=== PATIENT | male | born 1990 | race Caucasian/White ===

== ENCOUNTER → 2018-09-18 09:21 | Outpatient (CLI) | payer BC, SELFPAY ==
[2018-09-18 10:50] LABS: PH,Semen 8.5 (7.3-8.3); Semen Viscosity Normal (Normal); WBCs,Semen Negative
[2018-09-18 10:51] LABS: Motility Quality Rapid Progression (Mod-Rapid); Sperm Count 38 mil/mm3 (20-160); Sperm Motility 75 % (50-90)
[2018-09-18 12:30] LABS: 3Hr Motility Quality Rapid Progression (Mod-Rapid); 3Hr Sperm Motility 50 % (50-60); Sperm Morphology Normal (Normal)
== END ==
PROVIDERS: Visit Provider Obstetrics & Gynecology
DX: Z31.69 Encounter for other general counseling and advice on procreation (principal)
CPT/HCPCS: 89320

== ENCOUNTER 2020-06-25 08:57 | Emergency (ER) | payer OTHER, SELFPAY ==
[2020-06-25 09:12] VITALS: BP 134/101; PULSE 98; RESP 18; TEMP 36.8; O2SAT 99; BMI 40.4
--- NOTE | 2020-06-25 09:15 | PC.NURSE ---
Offered patient COVID test and flu test. Patient yelled at this nurse and SRNA stating that it is his right to refuse. Agreed with patient and did not perform these test. Patient also yelling that the lady out front made him mad asking him irrelevant question like where he works and they made him change his mask to this thin piece of crap .
--- NOTE | 2020-06-25 09:34 | HMH.EDUTC ---
[facility] [place] Disposition Clinical Impression: Viral syndrome Pharyngitis Qualifiers: Pharyngitis/tonsillitis etiology: unspecified etiology Qualified Code(s): J02.9 - Acute pharyngitis, unspecified Disposition: Home, Self-Care Condition on Discharge: Good Instructions: DI for Viral Syndrome, Preventing the Spread of Coronavirus Discharge Instructions Additional Instructions: Drink plenty of fluids. Take tylenol or ibuprofen for pain or fever. Take the medications as directed. Follow up with your regular doctor. GO TO THE ER FOR ANY WORSENING SYMPTOMS Prescriptions: Ondansetron [Zofran 4mg ODT] 4 mg PO Q8HP PRN #12 tab.rapdis PRN Reason: Nausea Transmission Status: Received by [id number] Azithromycin [Z-Clifton 250mg Tab*] 250 mg PO UD DOSE PK #6 tab Transmission Status: Received by [id number] Zinc Sulfate [Zinc Sulfate 220mg capsule] 1 cap PO DAILY 14 Days #14 cap Transmission Status: Received by [id number] Referrals: PCP,No [Primary Care Provider] - Forms: Work/School Release Time of Disposition: 09:36 Medical Decision Making - Medical Records Medical records reviewed: No: I reviewed the patient's medical records. - Thierry Inquiry Pt receiving controlled substance: No Vital Signs: 06/25/20 09:12 06/25/20 09:59 Temperature 98.3 F 98.3 F Temperature Source Oral Oral Pulse Rate 98 H Pulse Rate [Radial] 98 H Respiratory Rate 18 18 Blood Pressure 134/101 H Blood Pressure [Right Arm] 134/101 H Blood Pressure Mean [Right Arm] 112 Blood Pressure Source Automatic Cuff Blood Pressure Source [Right Arm] Automatic Cuff Blood Pressure Position Sitting Blood Pressure Position [Right Arm] Sitting 02 Sat by Pulse Oximetry 99 Oxygen Delivery Method Room Air Room Air Orders (Tests/Meds): ORDERS Category Date Time Status Covid-19 Nasal PCR Sendout [facility] 06/25/20 09:[address] [facility] [place] HPI - General Stated complaint: headache,body aches Time Seen by Provider: 06/25/20 09:34 Mode of Arrival: Ambulatory Source of Information: Patient Limitations: No Limitations Description of Symptoms (Recalled from Triage Doc. by RN): body aches, headache, fever since yesterday HEENT Symptoms (Recalled from RN notes): Yes Resp Symptoms (Recalled from RN notes): No Skin Symptoms (Recalled from RN notes): No MS Symptoms (Recalled from RN notes): No Functional Status (Recalled from RN notes): wnl - History of Present Illness Provider Complaint: He c/o 2 days of low grade fever, chills, body aches, head aches. - Related Data Home Medications Medication Instructions Recorded Confirmed ARIPiprazole [Aripiprazole 10mg 10 mg PO DAILY 06/06/19 06/06/19 Tablet] Previous Rx's Medication Instructions Recorded Azithromycin [Z-Clifton 250mg Tab*] 250 mg PO UD DOSE PK #6 tab 07/25/19 Brompheniramine/Pseudoephed/Dm 5 ml PO Q6HP PRN #240 syrup 07/25/19 [Bromfed Dm Cough Syrup] Ibuprofen [Ibuprofen 600mg 600 mg PO Q6HP PRN #30 tab 07/25/19 Tablet] Oseltamivir Phosphate [Tamiflu 75 mg PO BID #10 cap 07/25/19 75mg Capsule] Azithromycin [Z-Clifton 250mg Tab*] 250 mg PO UD DOSE PK #6 tab 06/25/20 Ondansetron [Zofran 4mg ODT] 4 mg PO Q8HP PRN #12 tab.rapdis 06/25/20 Zinc Sulfate [Zinc Sulfate 220mg 1 cap PO DAILY 14 Days #14 cap 06/25/20 capsule] Allergies Allergy/AdvReac Type Severity Reaction Status Date / Time No Known Allergies Allergy Verified 01/22/19 01:16 - Worker's Comp Is this a Worker's Comp case?: No [facility] History - Hepatitis A Screen Drug use history?: No High risk sexual behaviors?: No History of sexually transmitted infection?: No Currently employed?: No Childcare worker?: No Do you have indoor plumbing?: Yes Do you have electricity?: Yes Attestation statement:: This patient has been screened for Hepatitis A risk factors. I have reviewed the patient's past medical history: Yes Medical History: Denies:: C
[2020-06-25 09:59] VITALS: BP 134/101; PULSE 98; RESP 18; TEMP 36.8; O2SAT 99
[2020-06-26 12:30] LABS: Covid-19 Nasal PCR Sendout Lex Not Detected
== END 2020-06-25 10:00 | disposition home or self-care (01) ==
PROVIDERS: Emergency Provider Nurse Practitioner Family
DX: Z20.828 Contact with and (suspected) exposure to other viral communicable diseases (principal); B34.9 Viral infection, unspecified; F17.210 Nicotine dependence, cigarettes, uncomplicated
CPT/HCPCS: 99201; U0004

== ENCOUNTER 2022-07-23 08:18 | Emergency (ER) | payer OTHER, SELFPAY ==
[2022-07-23 08:25] VITALS: BP 163/88; PULSE 109; RESP 20; TEMP 36.7; O2SAT 97; BMI 42.7
--- NOTE | 2022-07-23 08:38 | EXP.UTC ---
Discharge Plan Disposition Patient Disposition: Home, Self-Care Condition: Good Referrals Follow up/Referrals: Provider,Referral, [Primary Care Provider] - See instructions Activity Restrictions/Add. Instructions Additional Instructions/Restrictions: *Monitor Temp, Over the counter Motrin or Tylenol as directed/as needed Tylenol every 4 hours and Motrin every 6 hours (as long as your family doctor has told you that you can take it) for fever or pain. and straight to ER if unable to lower temp less than 101.0 after medication given *Warm salt water gargles may help to soothe the throat *Throat Lozenges? *Warm fluids like tea with honey may help to soothe the throat? *Sleep elevated *Humidifier/Vaporizer Your throat swab was sent for culture. Those results are typically sent to your primary care. Be sure to follow up in 2-3 days with your family doctor/primary care physician if no improvement so they can review those result and treat if necessary. If you don?t have a primary care doctor, I recommend you get one but in the mean time, you will have to return to a walk in clinic Follow up IMMEDIATELY for new or worsening symptoms or no Noticeable improvement over the next 48-72 hours. 911 for difficulty breathing or swallowing Clinical Impressions Clinical Impression: Viral upper respiratory infection Stand Alone Forms Stand Alone Forms: Work/School Release Instructions Patient Instructions: Sore Throat, DI for Fever (Symptom) -- Adult Discharge ED Provider: Evon Guerra [facility] [place] General Stated complaint: headache,sore throat,body aches Mode of Arrival: Ambulatory Source of Information: Patient Limitations: No Limitations Time Seen by Provider: 07/23/22 08:38 Description of Symptoms (Recalled from Triage Doc. by RN): PATIENT C/O HEADACHE, SORE THROAT, LOW-GRADE FEVER, BODY ACHES, AND COUGH THAT STARTED LAST NIGHT HEENT Symptoms (Recalled from RN notes): Yes Resp Symptoms (Recalled from RN notes): Yes Skin Symptoms (Recalled from RN notes): No MS Symptoms (Recalled from RN notes): No Functional Status (Recalled from RN notes): WNL History of Present Illness Provider Complaint: Patient states that he started last night with sore throat, body aches, chills, headache and low grade fever States that this morning he was still feeling bad so he came in to get checked Related Data Allergies Allergy/AdvReac Type Severity Reaction Status Date / Time No Known Allergies Allergy Verified 01/22/19 01:16 Worker's Comp Is this a Worker's Comp case?: No [facility] Disclaimer: The information contained in this section may have been updated after the patient was seen, as this information can be updated by other users. Medical History (Updated 07/23/22 @ 08:56 by Evon Guerra APRN) No significant past medical history Social History (Updated 07/23/22 @ 08:37 by Celine iSngh RN) Smoking Status: Current every day smoker tobacco type: cigarettes packs per day: 1 second hand exposure: Yes alcohol intake: never substance use type: denies use current occupational status: employed Travel in the last 8 weeks: None ROS Obtained: Yes All systems reviewed & no additional complaints except as documented and Yes Systems reviewed as appropriate & no additional complaints except as documented Constitutional Constitutional: Reports system reviewed and no additional complaints, except as documented, Reports as per HPI, Reports chills, Reports fever(s) and Reports headache(s) ENT Ears, Nose, Mouth, and Throat: Reports system reviewed and no additional complaints, except as documented, Reports as per HPI, Reports headache(s), Reports nasal discharge and Reports sore throat Cardiovascular Cardiovascular: Reports system reviewed and no additional complaints, except as documented and Reports as per HPI Respiratory Respiratory: Reports system reviewed and no additional complaints, except as docum
[2022-07-23 08:51] LABS: UTC Influenza A Antigen Negative (Negative); UTC Influenza B Antigen Negative (Negative); UTC Strep Screen (Rapid) Negative (Negative)
[2022-07-23 08:52] VITALS: BP 163/88; PULSE 109; RESP 20; TEMP 36.7; O2SAT 97
== END 2022-07-23 09:04 | disposition home or self-care (01) ==
PROVIDERS: Emergency Provider Nurse Practitioner
DX: J06.9 Acute upper respiratory infection, unspecified (principal)
CPT/HCPCS: 87804; 87880; 99212; G0463

== ENCOUNTER 2023-04-09 13:17 | Emergency (ER) | payer OTHER, SELFPAY ==
[2023-04-09 13:25] VITALS: BP 133/94; PULSE 91; RESP 18; TEMP 36.8; O2SAT 95; BMI 36.8
--- NOTE | 2023-04-09 13:39 | EXP.UTC ---
Discharge Plan Disposition Patient Disposition: Home, Self-Care Condition: Good Prescriptions Prescriptions: New cephalexin 500 mg capsule 500 mg PO QID Qty: 28 0RF Referrals Follow up/Referrals: Provider,Referral, MD [Primary Care Provider] - See instructions Activity Restrictions/Add. Instructions Additional Instructions/Restrictions: Keep the wound clean and dry. Keep a dressing on it if you are going to be getting it dirty. Watch the wound for signs of infection, such as redness, swelling, drainage, fever. etc. Take tylenol or ibuprofen for pain. Follow up with your regular doctor. Return in 7 to 10 days to have the sutures removed. GO TO THE ER FOR ANY WORSENING SYMPTOMS OR CONCERNS. Clinical Impressions Clinical Impression: Laceration of right index finger Instructions Patient Instructions: DI for Laceration Repair, DI for Laceration Repair -- Finger Discharge ED Provider: Issac Suarez [facility] General Stated complaint: AO RT index finger lac 1300 Mode of Arrival: Ambulatory Source of Information: Patient Limitations: No Limitations Time Seen by Provider: 04/09/23 13:39 Description of Symptoms (Recalled from Triage Doc. by RN): Today windshield wiper came off and cut his right index finger. HEENT Symptoms (Recalled from RN notes): No Resp Symptoms (Recalled from RN notes): No Skin Symptoms (Recalled from RN notes): Yes MS Symptoms (Recalled from RN notes): No Functional Status (Recalled from RN notes): n/a History of Present Illness Provider Complaint: HE states that he was changing his windshield wipers earlier today with somehow the blade cut his right index finger. He has a laceration on the palmar aspect of that finger near the base of the finger. Related Data Previous Rx's Medication Instructions Recorded cephalexin 500 mg capsule 500 mg PO QID #28 caps 04/09/23 Allergies Allergy/AdvReac Type Severity Reaction Status Date / Time No Known Allergies Allergy Verified 04/09/23 13:36 Worker's Comp Is this a Worker's Comp case?: No [facility] Disclaimer: The information contained in this section may have been updated after the patient was seen, as this information can be updated by other users. Medical History (Updated 04/09/23 @ 14:48 by Issac Suarez APRN) No significant past medical history Social History Smoking Status: Current every day smoker tobacco type: cigarettes packs per day: 1 second hand exposure: Yes alcohol intake: never substance use type: denies use current occupational status: employed Travel in the last 8 weeks: None ROS Obtained: Yes All systems reviewed & no additional complaints except as documented Constitutional Constitutional: Denies chills and Denies fever(s) Eyes Eyes: Denies eye discharge ENT Ears, Nose, Mouth, and Throat: Denies dizziness, Denies otalgia and Denies sore throat Cardiovascular Cardiovascular: Denies chest pain Respiratory Respiratory: Denies shortness of breath, Denies chest congestion, Denies cough, Denies stridor and Denies wheezing Gastrointestinal Gastrointestingal: Denies nausea or vomiting Musculoskeletal Musculoskeletal: Reports system reviewed and no additional complaints, except as documented and Denies arthralgias Integumentary/Breasts Skin/Breast: Reports as per HPI Neurologic Neurologic: Denies dizziness and Denies paresthesias Allergic/Immunologic Allergic/Immunologic: Denies wheezing Physical Exam General General appearance: alert and in no apparent distress Head Head exam: atraumatic, normocephalic and normal inspection Eye Eye exam: Present normal appearance, PERRL and EOMI ENT ENT exam: Present normal exam, normal oropharynx, mucous membranes moist, TM's normal bilaterally and normal external ear exam Neck Neck exam: Present normal inspection, full ROM and trachea midline; Absent meningismus or lymphadenopathy Chest Chest in
[2023-04-09 15:00] VITALS: BP 133/94; PULSE 91; RESP 18; TEMP 36.8; O2SAT 95
== END 2023-04-09 15:00 | disposition home or self-care (01) ==
PROVIDERS: Emergency Provider Nurse Practitioner Family
DX: S61.210A Laceration without foreign body of right index finger without damage to nail, initial encounter (principal); F17.210 Nicotine dependence, cigarettes, uncomplicated; W26.8XXA Contact with other sharp object(s), not elsewhere classified, initial encounter
CPT/HCPCS: 12001; 99213; 99214; G0463

== ENCOUNTER 2023-05-12 14:22 | Emergency (ER) | payer OTHER, SELFPAY ==
[2023-05-12 14:30] VITALS: BP 147/90; PULSE 92; RESP 20; TEMP 36.5; O2SAT 98; BMI 36.3
--- NOTE | 2023-05-12 14:32 | EXP.UTC ---
Discharge Plan Disposition Patient Disposition: Home, Self-Care Condition: Good Prescriptions Prescriptions: New benzonatate [benzonatate] 100 mg capsule 100 mg PO TIDP PRN (Reason: Cough) Qty: 30 0RF methylprednisolone 4 mg Tablets,Dose Pack 4 mg PO DIRECTED Qty: 21 0RF amoxicillin-pot clavulanate 875-125 mg Tablet 1 tab PO Q12H Qty: 20 0RF Referrals Follow up/Referrals: Provider,Referral, MD [Primary Care Provider] - See instructions Activity Restrictions/Add. Instructions Additional Instructions/Restrictions: Drink plenty of fluids. Take tylenol or ibuprofen for pain or fever. Take the medications as directed. Follow up with your regular doctor. GO TO THE ER FOR ANY WORSENING SYMPTOMS Clinical Impressions Clinical Impression: Sinusitis Stand Alone Forms Stand Alone Forms: Work/School Release Instructions Patient Instructions: Sinusitis, DI for Sinusitis Discharge ED Provider: Issac Suarez [facility] [place] [facility] [place] General Stated complaint: sore throat,cough Time Seen by Provider: 05/12/23 14:32 History of Present Illness Provider Complaint: He states that for the past 2 days he has had a worsening sinus congestion and sore throat. Related Data Previous Rx's Medication Instructions Recorded amoxicillin 875 mg-potassium 1 tab PO Q12H #20 tabs 05/12/23 clavulanate 125 mg tablet benzonatate 100 mg capsule 100 mg PO TIDP PRN Cough #30 caps 05/12/23 methylprednisolone 4 mg tablets in 4 mg PO DIRECTED #21 tabs 05/12/23 a dose pack Allergies Allergy/AdvReac Type Severity Reaction Status Date / Time No Known Allergies Allergy Verified 04/09/23 13:36 [facility] Disclaimer: The information contained in this section may have been updated after the patient was seen, as this information can be updated by other users. Medical History (Updated 05/12/23 @ 15:19 by Issac Suarez APRN) No significant past medical history Social History Smoking Status: Current every day smoker tobacco type: cigarettes packs per day: 1 second hand exposure: Yes alcohol intake: never substance use type: denies use current occupational status: employed Travel in the last 8 weeks: None ROS Obtained: Yes All systems reviewed & no additional complaints except as documented Constitutional Constitutional: Reports chills and Reports fever(s) Eyes Eyes: Denies eye discharge ENT Ears, Nose, Mouth, and Throat: Reports as per HPI Cardiovascular Cardiovascular: Denies chest pain Respiratory Respiratory: Denies chest congestion and Reports cough Gastrointestinal Gastrointestingal: Reports nausea; Denies abdominal pain, constipation, cramping, diarrhea or vomiting Musculoskeletal Musculoskeletal: Denies arthralgias Integumentary/Breasts Skin/Breast: Denies rash Neurologic Neurologic: Denies paresthesias Physical Exam General General appearance: alert and in no apparent distress Head Head exam: atraumatic, normocephalic and normal inspection Eye Eye exam: Present normal appearance, PERRL and EOMI ENT ENT exam: Present mucous membranes moist and normal external ear exam Expanded ENT Exam TM/Canal exam: Bilateral TM: erythema and bulging Nose exam: Absent sinus tenderness Mouth exam: Present normal external inspection; Absent drooling Teeth exam: Present normal inspection Throat exam: Present tonsillar erythema, tonsillomegaly and tonsillar exudate Neck Neck exam: Present normal inspection, full ROM and trachea midline; Absent tenderness, meningismus or lymphadenopathy Chest Chest inspection: Present normal inspection and symmetric chest wall rise; Absent tenderness Respiratory Respiratory exam: Present normal lung sounds bilaterally; Absent respiratory distress, wheezes or stridor Cardiovascular Cardiovascular exam: Present regular rate and normal rhythm; Absent systolic murmur or diastolic murmur Abdominal Exam Abdominal exam: Prese
[2023-05-12 14:39] VITALS: BP 147/90; PULSE 92; RESP 20; TEMP 36.5; O2SAT 98
[2023-05-12 14:46] LABS: UTC Strep Screen (Rapid) Negative (Negative)
== END 2023-05-12 15:25 | disposition home or self-care (01) ==
PROVIDERS: Emergency Provider Nurse Practitioner Family
DX: J01.90 Acute sinusitis, unspecified (principal); J02.9 Acute pharyngitis, unspecified; F17.210 Nicotine dependence, cigarettes, uncomplicated
CPT/HCPCS: 87880; 99212; 99214; G0463

== ENCOUNTER 2023-09-07 11:50 | Emergency (ER) | payer OTHER, SELFPAY ==
[2023-09-07 12:50] VITALS: BP 136/88; PULSE 79; RESP 16; TEMP 36.5; O2SAT 97; BMI 38.3
--- NOTE | 2023-09-07 12:59 | ED_ITS ---
Discharge Plan Disposition Patient Disposition: Home, Self-Care Condition: Good Prescriptions Prescriptions: No Action benzonatate [benzonatate] 100 mg capsule 100 mg PO TIDP PRN (Reason: Cough) Qty: 30 0RF methylprednisolone 4 mg Tablets,Dose Pack 4 mg PO DIRECTED Qty: 21 0RF amoxicillin-pot clavulanate 875-125 mg Tablet 1 tab PO Q12H Qty: 20 0RF Referrals Follow up/Referrals: Provider,Referral, MD [Primary Care Provider] - See instructions Activity Restrictions/Add. Instructions Additional Instructions/Restrictions: *Monitor Temp, Over the counter Motrin or Tylenol as directed/as needed Tylenol every 4 hours and Motrin every 6 hours (as long as your family doctor has told you that you can take it) for fever or pain. and straight to ER if unable to lower temp less than 101.0 after medication given *Warm salt water gargles may help to soothe the throat *Throat Lozenges? *Warm fluids like tea with honey may help to soothe the throat? *Sleep elevated *Humidifier/Vaporizer Your throat swab was sent for culture. Those results are typically sent to your primary care. Be sure to follow up in 2-3 days with your family doctor/primary care physician if no improvement so they can review those result and treat if necessary. If you don?t have a primary care doctor, I recommend you get one but in the mean time, you will have to return to a walk in clinic Follow up IMMEDIATELY for new or worsening symptoms or no Noticeable improvement over the next 48-72 hours. 911 for difficulty breathing or swallowing Clinical Impressions Clinical Impression: Viral syndrome Stand Alone Forms Stand Alone Forms: Work/School Release Instructions Patient Instructions: DI for Viral Syndrome Discharge ED Provider: Evon Guerra [facility] General Stated complaint: head pain, fatigue Mode of Arrival: Ambulatory Source of Information: Patient Limitations: No Limitations Time Seen by Provider: 09/07/23 12:59 Description of Symptoms (Recalled from Triage Doc. by RN): Patient states he was exposed to flu and is now having headache, fatigue and body aches. HEENT Symptoms (Recalled from RN notes): Yes Resp Symptoms (Recalled from RN notes): No Skin Symptoms (Recalled from RN notes): No MS Symptoms (Recalled from RN notes): No Functional Status (Recalled from RN notes): wnl History of Present Illness Provider Complaint: Patient states that one of his coworkers has been out with the flu now he woke up having flu like symptoms States that he has been having body aches, headache, chills and over all feeling achy all over so he came in to get tested Related Data Previous Rx's Medication Instructions Recorded amoxicillin 875 mg-potassium 1 tab PO Q12H #20 tabs 05/12/23 clavulanate 125 mg tablet benzonatate 100 mg capsule 100 mg PO TIDP PRN Cough #30 caps 05/12/23 methylprednisolone 4 mg tablets in 4 mg PO DIRECTED #21 tabs 05/12/23 a dose pack Allergies Allergy/AdvReac Type Severity Reaction Status Date / Time No Known Allergies Allergy Verified 04/09/23 13:36 Worker's Comp Is this a Worker's Comp case?: No [facility] Disclaimer: The information contained in this section may have been updated after the patient was seen, as this information can be updated by other users. Medical History (Updated 09/07/23 @ 13:12 by Evon Guerra APRN) No significant past medical history Social History Smoking Status: Current every day smoker tobacco type: cigarettes packs per day: 1 second hand exposure: Yes alcohol intake: never substance use type: denies use current occupational status: employed Travel in the last 8 weeks: None ROS Obtained: Yes All systems reviewed & no additional complaints except as documented and Yes Systems reviewed as appropriate & no additional complaints except as documented Constitutional Constitutional: Reports system reviewed and no additional complaints, except as documented, Reports as per HPI, Reports body ache, Reports chills and Reports headache(s) ENT Ears, Nose, Mouth, and Throat: Reports system reviewed and no additional complaints, except as documented, Reports as per HPI, Reports headache(s) and Reports nasal congestion Cardiovascular Cardiovascular: Reports system reviewed and no additional complaints, except as documented and Reports as per HPI Respiratory Respiratory: Reports system reviewed and no additional complaints, except as documented and Reports as per HPI Gastrointestinal Gastrointestingal: Reports system reviewed and no additional complaints, except as documented and as per HPI Neurologic Neurologic: Reports headache(s) Physical Exam General General appearance: alert and in no apparent distress ENT ENT exam: Present mucous membranes moist Expanded ENT Exam Nose exam: Absent sinus tenderness Throat exam: Present normal inspection Respiratory Respiratory exam: Present normal lung sounds bilaterally; Absent respiratory distress or wheezes Cardiovascular Cardiovascular exam: Present regular rate, normal rhythm and normal heart sounds Abdominal Exam Abdominal exam: Present soft and normal bowel sounds; Absent distention or tenderness Neurological Exam Neurological exam: Present alert, oriented X3 and normal gait Medical Decision Making Thierry Inquiry Pt receiving controlled substance: No Thierry was queried for this patient: No Vital Signs: 09/07/23 12:50 Temperature 97.7 F Temperature Source Oral Pulse Rate [Radial] 79 Respiratory Rate 16 Blood Pressure [Right Arm] 136/88 Blood Pressure Mean [Right Arm] 104 Blood Pressure Source [Right Arm] Automatic Cuff Blood Pressure Position [Right Arm] Sitting 02 Sat by Pulse Oximetry 97 Oxygen Delivery Method Room Air Lab Data Lab results reviewed: Yes I reviewed the patient's lab results.
[2023-09-07 13:10] LABS: UTC Influenza A Antigen Negative (Negative)
[2023-09-07 13:11] LABS: UTC Influenza B Antigen Negative (Negative)
[2023-09-07 13:31] VITALS: BP 136/88; PULSE 79; RESP 16; TEMP 36.5; O2SAT 97
== END 2023-09-07 13:34 | disposition home or self-care (01) ==
PROVIDERS: Emergency Provider Nurse Practitioner
DX: R51.9 Headache, unspecified (principal); M79.18 Myalgia, other site; R53.83 Other fatigue; F17.210 Nicotine dependence, cigarettes, uncomplicated; Z20.828 Contact with and (suspected) exposure to other viral communicable diseases
CPT/HCPCS: 87804; 99212; 99213; G0463

== ENCOUNTER 2024-12-08 08:12 | Emergency (ER) | payer OTHER, SELFPAY ==
[2024-12-08 08:23] VITALS: BP 155/106; PULSE 100; RESP 20; TEMP 36.9; O2SAT 99; BMI 45.3
[2024-12-08 08:30] VITALS: PULSE 100; O2SAT 97
--- NOTE | 2024-12-08 08:35 | CT_ITS ---
PROCEDURE INFORMATION: Exam: CTA Chest With Contrast Exam date and time: 12/08/2024 9:14 AM Age: 34 years old Clinical indication: Cough and shortness of breath; Other: Lt post rib pain; Additional info: L rib pain after chiro manipulation, cough/soa TECHNIQUE: Imaging protocol: Computed tomographic angiography of the chest with contrast. Exam focused on the arteries. 3D rendering (Not supervised by radiologist): MIP and/or 3D reconstructed images were created by the technologist. Radiation optimization: All CT scans at this facility use at least one of these dose optimization techniques: automated exposure control; mA and/or kV adjustment per patient size (includes targeted exams where dose is matched to clinical indication); or iterative reconstruction. Contrast material: ISOVUE 370; Contrast volume: 70 ml; Contrast route: INTRAVENOUS (IV); COMPARISON: CR XR CHEST 2V 06/06/2019 6:12 AM FINDINGS: Pulmonary arteries: Negative for acute pulmonary embolism. Aorta: Unremarkable. No aortic aneurysm. No aortic dissection. Lungs: Unremarkable. No consolidation. No masses. Pleural spaces: Unremarkable. No pneumothorax. No pleural effusion. Heart: Unremarkable. No cardiomegaly. No pericardial effusion. Lymph nodes: Unremarkable. No enlarged lymph nodes. Bones/joints: No acute rib fracture. Soft tissues: Unremarkable. Other findings: Previous granulomatous exposure. IMPRESSION: 1. Negative for acute pulmonary embolism. 2. No acute rib fracture.
--- NOTE | 2024-12-08 08:44 | [facility].EDGENADL ---
Discharge Plan Disposition Patient Disposition: Home, Self-Care Condition: Good Prescriptions Prescriptions: New ketorolac 10 mg tablet 10 mg PO Q8H PRN (Reason: pain) 3 Days Qty: 12 0RF methocarbamol 750 mg tablet 750 mg PO Q8H PRN (Reason: pain) Qty: 20 0RF No Action benzonatate [benzonatate] 100 mg capsule 100 mg PO TIDP PRN (Reason: Cough) Qty: 30 0RF methylprednisolone 4 mg Tablets,Dose Pack 4 mg PO DIRECTED Qty: 21 0RF amoxicillin-pot clavulanate 875-125 mg Tablet 1 tab PO Q12H Qty: 20 0RF Referrals Follow up/Referrals: Provider,Referral, MD [Primary Care Provider] - See instructions Activity Restrictions/Add. Instructions Additional Instructions/Restrictions: You were evaluated in the emergency department today. At this time, labs and CT scan are reassuring. It is likely that you have muscle strain/sprain or rib contusion, but there are no broken bones noted on CT scan. supervisor of guidance and testing your prescriptions at the pharmacy and take them as needed for pain. You may also take Tylenol every 4-6 hours as needed. Return to the emergency department for new or worsening symptoms. Follow-up with your primary care provider for reassessment. Clinical Impressions Clinical Impression: Chest wall muscle strain Stand Alone Forms Stand Alone Forms: Work/School Release Instructions Patient Instructions: DI for Rib Contusion, DI for Acute Pain -- Adult Print Language Print Language: [place] Citizen Discharge ED Provider: Kaylee Xiao General Adult HPI General Chief complaint: PAIN Stated complaint: pain in left ribs Time Seen by Provider: 12/08/24 08:23 Mode of Arrival: Ambulatory Source of Information: Patient Description of Symptoms (Recalled from ER Triage Doc. by RN): left side pain. rib area. states he went to the chiropractor this week and has hurt since. denies any accident History of Present Illness HPI narrative: This patient is a 34-year-old male with a history of obesity presenting to the emergency department for evaluation with concern for left rib pain. Patient reports he was manipulated by chiropractor on Tuesday and initially was doing okay with only mild discomfort on , but he developed what he believes to be a sinus infection with cough and congestion and is now having severe left-sided rib/chest pain with any sort of movement, cough, or deep breathing. He states that he thinks he broke a rib. No other concerns or complaints noted currently Related Data Previous Rx's ?Medication ?Instructions ?Recorded amoxicillin 875 mg-potassium 1 tab PO Q12H #20 tabs 05/12/23 clavulanate 125 mg tablet benzonatate 100 mg capsule 100 mg PO TIDP PRN Cough #30 caps 05/12/23 methylprednisolone 4 mg tablets in 4 mg PO DIRECTED #21 tabs 05/12/23 a dose pack ketorolac 10 mg tablet 10 mg PO Q8H PRN pain 3 days #12 12/08/24 tabs methocarbamol 750 mg tablet 750 mg PO Q8H PRN pain #20 tabs 12/08/24 Allergies Allergy/AdvReac Type Severity Reaction Status Date / Time No Known Allergies Allergy Verified 04/09/23 13:36 [facility] Disclaimer: The information contained in this section may have been updated after the patient was seen, as this information can be updated by other users. Medical History No significant past medical history Social History Smoking Status: Current every day smoker tobacco type: cigarettes packs per day: 1 second hand exposure: Yes alcohol intake: never substance use type: denies use current occupational status: employed Travel in the last 8 weeks?: None Have you lived/traveled outside [place] in past 30 days?: No Contact w/someone who lives/traveled outside [place] past 30 days?: No Exposure to someone with infectious disease in past 14 days?: No Do you have a fever (greater than 100.4 F or 38 C)?: No Have you tested positive for COVID-19?: No Exposed to someone with COVID-19 in past 14 days?: No Do you have a sore throat?: No Do you have a cough?: No Do you have any weakness?: No Do you have any diarrhea?: No Are you experiencing any unusual bleeding?: No Do you have any muscle aches/pain?: No Do you have any abdominal pain?: No Are you experiencing loss of taste or smell?: No Other Medical History Have you received the Flu Vaccine for this season: No Have you received the Pneumonia Vaccine: No ROS Obtained: Yes All systems reviewed & no additional complaints except as documented Physical Exam General General appearance: alert and in no apparent distress Head Head exam: atraumatic and normocephalic Eye Eye exam: Present normal appearance, PERRL and EOMI ENT ENT exam: Present normal exam, normal oropharynx, mucous membranes moist and normal external ear exam Neck Neck exam: Present normal inspection, full ROM and trachea midline; Absent tenderness Chest Chest inspection: Present symmetric chest wall rise and tenderness Expanded Chest Exam Male Torso: 1. TTP 2. TTP Respiratory Respiratory exam: Present normal lung sounds bilaterally; Absent respiratory distress, wheezes, stridor or accessory muscle use Cardiovascular Cardiovascular exam: Present normal rhythm and tachycardia Abdominal Exam Abdominal exam: Present soft; Absent distention, tenderness or guarding Extremities Exam Extremities exam: Present normal inspection, full ROM and normal capillary refill; Absent tenderness or edema Back Exam Back exam: Present normal inspection and full ROM; Absent tenderness Neurological Exam Neurological exam: Present alert, oriented X3, CN II-XII intact and normal gait; Absent motor sensory deficit Psychiatric Psychiatric exam: Present normal affect and normal mood Skin Skin exam: Present warm and dry Medical Decision Making Medical Records Medical records reviewed: Yes I reviewed the patient's medical records. Screening: Per USPSTF and CDC recommendations, given the prevalence of disease in our region, it is our hospital?s policy to screen for HIV and viral Hepatitis for all patients aged 18 and over and those with ongoing risk factors. Thierry Inquiry Pt receiving controlled substance: No Vital Signs: 12/08/24 08:23 12/08/24 08:30 12/08/24 09:00 Temperature 98.5 F Temperature Source Oral Pulse Rate 100 H 106 H Pulse Rate [Right] 100 H Respiratory Rate 20 Blood Pressure 167/86 H Blood Pressure [Right Arm] 155/106 H Blood Pressure Mean [Right Arm] 122 02 Sat by Pulse Oximetry 99 97 98 Oxygen Delivery Method Room Air 12/08/24 09:31 12/08/24 10:00 12/08/24 10:14 Temperature 98.8 F Temperature Source Pulse Rate 87 87 82 Pulse Rate [Right] Respiratory Rate 18 Blood Pressure 126/80 133/92 H 133/92 H Blood Pressure [Right Arm] Blood Pressure Mean [Right Arm] 02 Sat by Pulse Oximetry 97 98 Oxygen Delivery Method Room Air Lab Data Lab results reviewed: Yes I reviewed the patient's lab results. Lab Results 12/08/24 08:40: WBC 6.1, RBC 5.03, Hgb 14.9, Hct 44.0, MCV 87.5, MCH 29.6, MCHC 33.9, RDW 13.1, Plt Count 202, MPV 9.3, Neut % (Auto) 63.4, Lymph % (Auto) 21.7, [place] % (Auto) 12.1 H, Eos % (Auto) 1.8, Baso % (Auto) 0.5, Neut # (Auto) 3.8, Lymph # (Auto) 1.3, [place] # (Auto) 0.7, Eos # (Auto) 0.1, Baso # (Auto) 0.0, Sodium 139, Potassium 4.4, Chloride 105, Carbon Dioxide 26, Anion Gap 12.4, BUN 19, Creatinine 0.90, Estimated Creat Clear 122, Estimated GFR 96, Est GFR ( Amer) 116, Glucose 107 H, Calcium 9.1 12/08/24 08:40 12/08/24 08:40 Orders (Tests/Meds): ED MEDICATIONS Discontinued Medications Generic Name Dose Route Start Last Admin Trade Name Juniorq PRN Reason Stop Dose Admin Acetaminophen 1,000 mg 12/08/24 08:35 12/08/24 08:45 Acetaminophen 500mg Tab PO 12/08/24 08:36 1,000 mg ONCE ONE Administration Iopamidol 70 ml 12/08/24 09:25 12/08/24 09:26 Iopamidol-370 (76%);100ml Bottle IV 12/08/24 09:26 70 ml ONCE ONE Administration Ketorolac Tromethamine 30 mg 12/08/24 08:35 12/08/24 08:46 Ketorolac 30mg/Ml Vial IV 12/08/24 08:36 30 mg ONCE ONE Administration Lidocaine 1 each 12/08/24 08:36 12/08/24 08:45 Lidocaine 5% Transdermal Patch TD 12/08/24 08:37 1 each ONCE ONE Administration Methocarbamol 1,000 mg 12/08/24 08:36 12/08/24 08:45 Methocarbamol 500mg Tablet PO 12/08/24 08:37 1,000 mg ONCE ONE Administration Sodium Chloride 50 ml 12/08/24 09:25 12/08/24 09:26 0.9 % Sodium Chloride 50 Ml Vial IV 12/08/24 09:26 50 ml ONCE ONE Administration Sodium Chloride 10 ml 12/08/24 09:25 12/08/24 09:26 Sodium Chloride 0.9% 10ml Syr (Rad Only) IV 01/07/25 09:24 10 ml NEEDED PRN Administration Maintain IV Site ORDERS Category Date Time Status CTA Chest [CT angio chest PE protocol] Stat Cat Scan 12/08/24 08:35 Completed BMP [Basic Metabolic Panel] Stat Lab 12/08/24 08:40 Completed CBC w/Auto Diff [Complete Blood Count Auto Diff] Stat Lab 12/08/24 08:40 Completed Medical Decision Narrative: In summary, this patient is a 34-year-old male presenting to the Emergency Department for evaluation of left rib/chest wall pain with cough. Differential diagnoses considered include but are not limited to rib contusion, rib fracture, musculoskeletal strain/sprain, pneumothorax, pleurisy, PE. Ruling out the most morbid conditions drove assessment. It should be noted patient's history includes obesity which is not at goal therapy. This complicates all aspects of care by increasing patient's risk for morbidity. On exam, the patient is sitting upright, uncomfortable appearing. He has significant tenderness to palpation of his left lateral lower ribs with no skin lesions, bruising, step-offs, or crepitus. He is mildly tachycardic and hypertensive but otherwise vitals are reassuring on cardiac telemetry. Cannot use PERC criteria to exclude PE in the setting of pleuritic chest pain and mild tachycardia. Workup included CBC, BMP, CTA PE protocol. He was given IV Toradol, oral Tylenol, oral Robaxin, topical Lidoderm patch for symptomatic improvement of pain. I independently interpreted CT scan prior to the radiologist read and noted no PE, no pneumothorax, no displaced rib fracture. Please see their read for final interpretation. Labs were obtained that demonstrated reassuring CBC and BMP. On reassessment, patient had good improvement after administration of interventions above. Vitals are normal on cardiac telemetry. At this time, feel he likely has musculoskeletal strain/sprain versus rib contusion given the degree of tenderness and pain on his left side. I considered ACS and workup including troponin and EKG, but the pain is entirely reproducible so I do not feel that is likely to be cardiac. I feel he is appropriate for discharge home with prescriptions for Toradol and Robaxin and instructions for close follow-up. Strict return precautions given. Critical Care Critical Care Time Critical Care Time: No
[2024-12-08] MEDS: METHOCARBAMOL 500MG TABLET 1000 MG PO (08:45)
[2024-12-08] MEDS: LIDOCAINE 5% TRANSDERMAL PATCH 1 EACH TD (08:45)
[2024-12-08] MEDS: ACETAMINOPHEN 500MG TAB 1000 MG PO (08:45)
[2024-12-08] MEDS: KETOROLAC 30MG/ML VIAL 30 MG IV (08:46)
[2024-12-08 08:48] LABS: Basophils % 0.5 % (0.1-2.0); Eosinophils # 0.1 Kmm3 (0.0-0.4); Eosinophils % 1.8 % (0.1-12.0); Hemoglobin 14.9 g/dL (14.1-18.0); Immature Granulocytes # 0.03 10^3uL; Immature Granulocytes % 0.5 %; Lymphocytes # 1.3 K/mm3 (0.7-4.5); Lymphocytes % 21.7 % (10-50); Mean Corpuscular HGB Conc 33.9 g/dL (31.8-35.4); Mean Corpuscular Hemoglobin 29.6 pg (27.0-31.2); Mean Corpuscular Volume 87.5 fl (80-94); Mean Platelet Volume 9.3 fl (7.4-10.4); Monocytes # 0.7 K/mm3 (0.1-1.0); Monocytes % 12.1 % (1.7-9.3); Neutrophils # 3.8 K/mm3 (1.8-7.8); Neutrophils % 63.4 % (37.0-80.0); Nucleated Red Blood Cells # 0 10^3/uL; Nucleated Red Blood Cells % 0 %; Platelet Count 202 K/mm3 (142-424); Red Blood Count 5.03 M/mm3 (4.60-6.20); Red Cell Distribution Width 13.1 % (11.5-17.5); White Blood Count 6.1 K/mm3 (4.8-10.8)
[2024-12-08 08:56] LABS: Anion Gap 12.4 mEq/L (5-15); Blood Urea Nitrogen 19 mg/dl (9-20); Calcium 9.1 mg/dl (8.4-10.2); Carbon Dioxide 26 mmol/L (22.0-30.0); Chloride 105 mmol/L (98-107); Creatinine Clearance Estimated 122 mL/min (50-200); Estimated Glomerular Filt Rate 96 ml/min (>60); GFR (African American) 116 ML/MIN (>60); Glucose 107 mg/dl (74-100); Potassium 4.4 mmoL/L (3.5-5.1); Sodium 139 mmol/L (136-145)
[2024-12-08 09:00] VITALS: BP 167/86; PULSE 106; O2SAT 98
[2024-12-08] MEDS: 0.9 % SODIUM CHLORIDE 50 ML VIAL IV (09:26)
[2024-12-08] MEDS: SODIUM CHLORIDE 0.9% 10ML SYR (RAD ONLY) 10 ML IV (09:26)
[2024-12-08] MEDS: IOPAMIDOL-370 (76%);100ML BOTTLE 70 ML IV (09:26)
[2024-12-08 09:31] VITALS: BP 126/80; PULSE 87; O2SAT 97
[2024-12-08 10:00] VITALS: BP 133/92; PULSE 87; O2SAT 98
[2024-12-08 10:14] VITALS: BP 133/92; PULSE 82; RESP 18; TEMP 37.1; O2SAT 99
== END 2024-12-08 10:15 | disposition home or self-care (01) ==
PROVIDERS: Emergency Provider Emergency Medicine
DX: R07.89 Other chest pain (principal); F17.210 Nicotine dependence, cigarettes, uncomplicated; E66.01 Morbid (severe) obesity due to excess calories
CPT/HCPCS: 71275; 80048; 85025; 96374; 99284; J1885; Q9967